=== PATIENT | female | born 1935 | race Caucasian/White ===

== ENCOUNTER 2021-03-22 19:17 | Emergency (ER) | payer OTHER ==
[~2021-03-22 19:17] MED LIST: ASPIRIN CHEWABL81 MG PO; CERTAGEN1 EACH PO; COZAAR50 MG PO; CRESTOR20 MG PO; FISH OIL 1,2001 EAC2 PO; LISINOPRIL 20MG20 MG PO; MEDROL 4MG DOSEP4 MG PO; SYNTHROID50 MCG PO; TENORMIN50 MG PO; TRIAMTERENE/HCT1 TAB PO; VANCOCIN HCL250 MG PO
[2021-03-22 20:14] LABS: BASOPHIL 0.5 % (0-2); EOSINOPHIL 0.9 % (0-7); HCT 38.4 % (37.0-47.0); LYMPHOCYTE 28.1 % (15-48); MCH 29.3 pg (25.0-31.0); MCHC 33.9 g/dL (32.0-36.0); MCV 86.5 fL (78.0-100.0); MONOCYTE 6.5 % (0-12); MPV 10.1 fL (6.0-9.5); NEUTROPHIL 63.6 % (41-80); NRBC 0; PLT 205 K/uL (150-400); RBC 4.44 M/uL (4.20-5.40); RDW 12.9 % (11.5-14.0); WBC 9.8 K/uL (4.0-10.5)
[2021-03-22 20:25] LABS: BUN/CREAT RATIO (CALC) 26.6 RATIO; CREATININE 1.09 mg/dL (0.51-0.95); POTASSIUM 3.7 mmol/L (3.5-5.1)
[2021-03-22 20:26] LABS: BILIRUBIN NEGATIVE (NEGATIVE); BLOOD NEGATIVE Ery/uL (NEGATIVE); CLARITY CLEAR (CLEAR); COLOR YELLOW (YELLOW); GLUCOSE (U) NORMAL (NORMAL); LEUKOCYTES 3+ Leu/uL (NEGATIVE); NITRITE NEGATIVE (NEGATIVE); PROTEIN NEGATIVE (NEGATIVE); SPECIFIC GRAVITY <=1.005 (1.001-1.030); UROBILINOGEN 0.2 mg/dL (0.2-1.0)
[2021-03-22 20:58] LABS: BACTERIA 1+; SQUAMOUS EPITHELIAL CELLS RARE; URINARY RBC RARE; URINARY WBC 20-50
== END 2021-03-22 22:25 | disposition home or self-care (01) ==
LOC: FER 19:17
PROVIDERS: Nurse Practitioner Family
DX: M25.552 Pain in left hip (principal); R42 Dizziness and giddiness; I10 Essential (primary) hypertension; W19.XXXA Unspecified fall, initial encounter; Y92.009 Unspecified place in unspecified non-institutional (private) residence as the place of occurrence of the external cause
CPT/HCPCS: 36415; 70450; 72125; 73502; 80048; 81001; 84484; 85025; 87088; 93005

== ENCOUNTER 2021-12-16 13:19 | Day surgery (SDCO) | payer OTHER ==
[~2021-12-16] VITALS: Ht 162.6 cm; Wt 68.0 kg
[2021-12-16 14:39] LABS: BASOPHIL 0.3 % (0-2); EOSINOPHIL 0.2 % (0-7); HCT 37.8 % (37.0-47.0); HGB 12.5 g/dl (12.5-16.0); LYMPHOCYTE 21.5 % (15-48); MCH 28.1 pg (25.0-31.0); MCHC 33.1 g/dL (32.0-36.0); MCV 84.9 fL (78.0-100.0); MONOCYTE 10.4 % (0-12); MPV 9.7 fL (6.0-9.5); NEUTROPHIL 67.4 % (41-80); NRBC 0; PLT 179 K/uL (150-400); RBC 4.45 M/uL (4.20-5.40); RDW 13.5 % (11.5-14.0); WBC 9.6 K/uL (4.0-10.5)
[2021-12-16 14:51] LABS: BILIRUBIN NEGATIVE (NEGATIVE); BLOOD NEGATIVE Ery/uL (NEGATIVE); CLARITY HAZY (CLEAR); COLOR YELLOW (YELLOW); GLUCOSE (U) NORMAL (NORMAL); LEUKOCYTES 1+ Leu/uL (NEGATIVE); NITRITE POSITIVE (NEGATIVE); PROTEIN NEGATIVE (NEGATIVE); SPECIFIC GRAVITY 1.015 (1.001-1.030); UROBILINOGEN 0.2 mg/dL (0.2-1.0)
[2021-12-16 14:54] LABS: INR 1.08 (0.9-1.2); PROTHROMBIN TIME 13.4 SECONDS (11.8-13.4); PTT 24.1 SECONDS (24.4-34.7)
[2021-12-16 14:56] LABS: D-DIMER 0.55 ug/mLFEU (0.00-0.41)
[2021-12-16 15:10] LABS: ALBUMIN 3.6 g/dL (3.4-5.0); ALKALINE PHOSHATASE 61 U/L (46-116); ALT 42 U/L (14-59); AST 28 U/L (15-37); BILIRUBIN - TOTAL 0.7 mg/dL (0.2-1.0); BUN 24 mg/dL (7-18); BUN/CREAT RATIO (CALC) 22.4 RATIO; CHLORIDE 94 mmol/L (98-107); CO2 (BICARBONATE) 28 mmol/L (21-32); CREATININE 1.07 mg/dL (0.51-0.95); GLOBULIN (CALCULATION) 2.9 g/dL; GLUCOSE 131 mg/dL (74-106); LDH 239 U/L (81-234); MAGNESIUM 1.9 mg/dL (1.8-2.4); POTASSIUM 3.3 mmol/L (3.5-5.1); TOTAL PROTEIN 6.5 g/dL (6.4-8.2)
[2021-12-16 15:11] LABS: C-REACTIVE PROTEIN < 0.20 mg/dL (<=0.90)
[2021-12-16 15:16] LABS: BACTERIA 4+; URINARY WBC TNTC
[2021-12-16 15:17] LABS: SQUAMOUS EPITHELIAL CELLS RARE
[2021-12-16 15:18] LABS: LACTIC ACID 1.7 mmol/L (0.4-1.9)
[2021-12-16] MEDS ORDERED: NORVASC2.5 MG PO (18:42)
[2021-12-16] MEDS ORDERED: HCTZ12.5 MG PO (18:42)
[2021-12-16] MEDS ORDERED: LACTINEX1 EACH PO (18:43)
[2021-12-16] MEDS ORDERED: DIOVAN160 MG PO (18:44)
[2021-12-16] MEDS ORDERED: MULTI-VITAMIN1 EACH PO (18:45)
[2021-12-17 06:02] LABS: BASOPHIL 0.3 % (0-2); EOSINOPHIL 0 % (0-7); HCT 40.8 % (37.0-47.0); HGB 13.8 g/dl (12.5-16.0); LYMPHOCYTE 22.5 % (15-48); MCH 28.7 pg (25.0-31.0); MCHC 33.8 g/dL (32.0-36.0); MCV 84.8 fL (78.0-100.0); MONOCYTE 10.3 % (0-12); MPV 10.1 fL (6.0-9.5); NEUTROPHIL 66.6 % (41-80); NRBC 0; PLT 188 K/uL (150-400); RBC 4.81 M/uL (4.20-5.40); RDW 13.5 % (11.5-14.0); WBC 9.4 K/uL (4.0-10.5)
[2021-12-17 06:21] LABS: BUN/CREAT RATIO (CALC) 18.1 RATIO; CREATININE 1.05 mg/dL (0.51-0.95)
[2021-12-18] MEDS ORDERED: KEFLEX250 MG PO (11:34)
--- NOTE | 2021-12-18 12:26 | NUR ---
SPOKE WITH DR. CAPUTO. PT IS OBS APPROPRIATE AND WILL D/C HOME 12/18/21.
[2021-12-18] MEDS ORDERED: BACTRIM DS TAB1 EACH PO (13:23)
== END 2021-12-18 14:05 | disposition home or self-care (01) ==
LOC: FER 13:19 → FMS 17:08
PROVIDERS: Emergency Medicine; ADMIT Internal Medicine
DX: R55 Syncope and collapse (principal); I10 Essential (primary) hypertension; E78.5 Hyperlipidemia, unspecified; I34.1 Nonrheumatic mitral (valve) prolapse; U07.1 COVID-19; E86.0 Dehydration; R79.89 Other specified abnormal findings of blood chemistry; N39.0 Urinary tract infection, site not specified; Z79.82 Long term (current) use of aspirin; Z88.8 Allergy status to other drugs, medicaments and biological substances; N17.9 Acute kidney failure, unspecified
CPT/HCPCS: 36415; 70450; 71045; 80048; 80053; 81001; 82728; 83605; 83615; 83735; 84145; 84443; 84484; 85025; 85379; 85610; 85730; 86140; 87076; 87088; 87186; 93005; G0378; J0696; J1650; J7030; U0002